=== PATIENT | male | born 1985 | race Caucasian/White ===

== ENCOUNTER → 2021-04-25 | Outpatient (CLI) | payer OTHER ==
[~2021-04-25] VITALS: Ht 175.3 cm; Wt 94.3 kg
== END ==
LOC: OPSV 09:49
DX: L40.50 Arthropathic psoriasis, unspecified (principal)
CPT/HCPCS: 96365; 96366; 96375; J1720; J7050; Q5103

== ENCOUNTER → 2021-05-09 | Outpatient (CLI) | payer OTHER ==
[~2021-05-09] VITALS: Ht 175.3 cm; Wt 94.3 kg
== END ==
LOC: OPSV 09:51
DX: L40.50 Arthropathic psoriasis, unspecified (principal)
CPT/HCPCS: 96365; 96366; 96375; J1720; J7050; Q5103

== ENCOUNTER → 2021-06-20 | Outpatient (CLI) | payer OTHER | LOC: OPSV 10:00 | DX: L40.50 Arthropathic psoriasis, unspecified (principal) | CPT/HCPCS: 96375; 96413; 96415; J1720; J7050; Q5103 ==

== ENCOUNTER → 2021-08-15 | Outpatient (CLI) | payer OTHER ==
[~2021-08-15] VITALS: Ht 175.3 cm; Wt 94.3 kg
== END ==
LOC: OPSV 10:00
DX: L40.50 Arthropathic psoriasis, unspecified (principal)
CPT/HCPCS: 96375; 96413; 96415; J1720; J7050; Q5103

== ENCOUNTER → 2021-10-10 | Outpatient (CLI) | payer OTHER ==
[~2021-10-10] VITALS: Ht 175.3 cm; Wt 94.3 kg
== END ==
LOC: OPSV 10:00
DX: L40.50 Arthropathic psoriasis, unspecified (principal)
CPT/HCPCS: 96375; 96413; 96415; J1720; J7050; Q5103